=== PATIENT | male | born 1955 | race Caucasian/White ===

== ENCOUNTER 2020-11-23 21:05 | Emergency (ER) | payer BC, SELFPAY ==
[2020-11-23 21:19] VITALS: BP 107/58; PULSE 75; RESP 18; TEMP 36.9; O2SAT 98; BMI 27.1
--- NOTE | 2020-11-23 21:58 | ED.DENTAL ---
HPI - Dental/Oral General Chief complaint: Dental/Oral Stated complaint: broken tooth Time Seen by Provider: 11/23/20 21:54 Source: patient Mode of arrival: ambulatory History of Present Illness HPI Narrative: 65-year-old male with a past medical history of CHF, mi, HLD, HTN, prostate CA, skin CA, [place], presenting to the ED complaining of right lower molar tooth pain times 5 days. Admits broke tooth eating donut, now with worsening pain. Admits has appointment with dentist tomorrow afternoon however pain is too severe. Denies drainage from to, fever, chills, erythema, swelling, difficulty swallowing, ear pain, throat pain MD Complaint: tooth pain and tooth injury Related Data Previous Rx's Medication Instructions Recorded acetaminophen-codeine 1 tab PO Q6H PRN 2 Days #8 tab 11/23/20 Allergies Allergy/AdvReac Type Severity Reaction Status Date / Time No Known Allergies Allergy Unverified 01/30/20 16:39 [No Known Allergies*] Review of Systems Review of Systems: Constitutional: No Fever, No Chills ENT/Mouth: No Ear Pain, No Nasal Congestion, No sore throat, No Swallowing Difficulty, +dental pain, +broken tooth Eyes: No Eye Pain, No Vision Changes Cardiovascular: No Chest Pain, No SOB Respiratory: No Cough, No Dyspnea Gastrointestinal: No Nausea, No Vomiting, No Abdominal pain Skin: No Skin Lesions, No rash Yes all other systems are reviewed and are negative [facility] Past Medical History Attestation statement: The following information was validated with the patient. Medical History (Updated 11/23/20 @ 22:01 by MAINOR Chacon) Cardiac defibrillator in place Congestive heart failure (CHF) Heart attack High cholesterol [place] (hard of hearing) HTN (hypertension) Prostate cancer Skin cancer Surgical History H/O prostatectomy Social History Social History Advance Directives: No Advance Directives Information Provided: Yes Physical Exam Vital Signs: Vital Signs: Last Vital Signs Temp 98.5 F 11/23/20 21:19 Pulse 75 11/23/20 21:19 Resp 18 11/23/20 21:19 BP 107/58 L 11/23/20 21:19 Pulse Ox 98 11/23/20 21:19 Body Mass Index 27.1 Const: General: cooperative and healthy appearing Orientation/consciousness: patient oriented x3 Limitations: no limitations HENMT: Other: Multiple dental caries. Right lower molar broken. No visible pulp. No gingival swelling/erythema. No fluctuance/induration Head: Yes normal to inspection Ears: hearing grossly normal bilaterally General nose exam: Normal external nose present Face and sinus: Yes normal facial exam Mouth: Normal oral and palatal mucosa present Teeth and gingiva: poor dentition Throat: Yes posterior oropharynx normal and Yes uvula midline Eyes: General: appearance normal, both eyes and all related structures EOM: EOMs intact bilaterally Neck: Neck: Yes normal visual inspection and Yes no meningeal signs Resp: Effort & Inspection: normal respiratory effort Cardio: Rate: regular rate Skin: Rashes: no rashes Wounds: no wounds Neuro: General: patient oriented x3 and no meningeal signs Gait exam (Neuro): Normal gait present Extrem: General: Yes normal to inspection MDM - Dental/Oral MDM Narrative Medical decision making narrative: 65-year-old male with a past medical history of CHF, mi, HLD, HTN, prostate CA, skin CA, [place], presenting to the ED complaining of right lower molar tooth pain times 5 days. On exam vital signs stable, NAD, physical exam as above. No evidence of dental abscess/infection. Will give patient pain control and to follow-up with dentist tomorrow, worrisome signs and symptoms and strict return precautions discussed Discharge Plan Discharge Clinical Impression: Toothache, Dental caries Patient Disposition: Home, Self-Care Instructions: Toothache (ED) Additional Instructions: you need to follow-up with the dentist tomorrow as scheduled Tylenol with codeine is an opiate pain medication, take only when pain is severe for the next 2 days if your pain persists or worsens, becomes unbearable, have drainage from the to the have facial swelling, or fever, please return to the ED Prescriptions: New acetaminophen-codeine 300-30 mg tablet 1 tab PO Q6H PRN (Reason: pain, severe) 2 Days Qty: 8 RF: 0 Referrals: Dinorah Power DMD [Dentist] - 2 days
== END 2020-11-23 23:52 | disposition home or self-care (01) ==
PROVIDERS: Emergency Provider Internal Medicine; PCP Hospitalist
DX: K02.9 Dental caries, unspecified (principal); I11.0 Hypertensive heart disease with heart failure; I50.9 Heart failure, unspecified; I25.2 Old myocardial infarction; Z95.810 Presence of automatic (implantable) cardiac defibrillator
CPT/HCPCS: 99283; 99284

== ENCOUNTER → 2023-09-01 08:46 | Day surgery (SDC) | payer BC, SELFPAY ==
[2023-09-01 08:59] VITALS: BMI 25.1
[2023-09-01] MEDS: Lactated Ringers 1,000 ML 80 ML IVCONT (09:06)
--- NOTE | 2023-09-01 09:14 | P.CONAN_ITS ---
HPI - Anesthesia Eval Consult details Narrative: for colon PMFSH Past Medical History Medical History [place] (hard of hearing) Skin cancer Prostate cancer High cholesterol HTN (hypertension) Congestive heart failure (CHF) Heart attack Cardiac defibrillator in place Family History Family history of problems with anesthesia: No Surgical History Surgical History H/O prostatectomy History of Problems with Anesthesia: No Social History Social History Patient Tobacco Use Status: Never used Tobacco Are you DNR?: No Advance Directives: No Advance Directives Information Provided: Yes Nutrition Risks: No Nutritional Risk Meds Allergies Allergy/AdvReac Type Severity Reaction Status Date / Time No Known Allergies Allergy Unverified 01/30/20 16:39 [No Known Allergies*] Active Medications: Current Medications Lactated Ringer's (Lr) 1,000 mls @ 80 mls/hr IVCONT .[id number] BRENDA Last Admin: 09/01/23 09:06 Dose: 80 mls/hr Sodium Biphosphate/Sodium Phosphate (Sodium Phosphate,Bell-Dibasic 133 Ml Enema) 133 ml CO ONCE PRN PRN Reason: Poor Colonoscopy Prep Results Home Medications ?Medication ?Instructions ?Recorded ?Confirmed ?Last Taken ?Type atorvastatin 80 mg tablet 80 mg PO DAILY 09/01/23 09/01/23 Unknown History carvedilol 3.125 mg tablet 3.125 mg PO BID 09/01/23 09/01/23 Unknown History clopidogrel 75 mg tablet 75 mg PO DAILY 09/01/23 09/01/23 Unknown History dapagliflozin propanediol 10 mg 10 mg PO DAILY 09/01/23 09/01/23 Unknown History tablet (Farxiga) digoxin 125 mcg (0.125 mg) tablet 125 mcg PO DAILY 09/01/23 09/01/23 Unknown History furosemide 20 mg tablet mg PO 09/01/23 Unknown History sacubitril 49 mg-valsartan 51 mg 1 tab PO BID 09/01/23 09/01/23 Unknown History tablet (Entresto) spironolactone 25 mg tablet 25 mg PO DAILY 09/01/23 09/01/23 Unknown History Exam Height,Weight and Vital Signs: Height 5 ft 11 in Weight 81.647 kg Airway Mallampati Class: II TM Dist: >3cm Neck ROM: Limited Heart: rrr Lungs: cta Assessment and Plan Assessment Anesthesia Assessment: Anesthesia Plan Discussed Final Anesthetic Review Family History of Problems with Anesthesia: No History of Problems with Anesthesia: No NPO: Yes ASA Class: III Final Preanesthetic Review: No Changes in Pt Med Stat, Meds/Allgs Chart Reviewed, Consent Obtained/Reviewed and Anes Risks/Benef Reviewed Patient Risk: Intermediate Procedure Risk: Low Anesthetic Plan Anesthetic Plan: MAC: Disposition: Standard PACU
[2023-09-01 09:25] VITALS: BP 99/48; PULSE 68; RESP 18; TEMP 36.8; O2SAT 97
[2023-09-01 09:25] LABS: Glucose, Whole Blood 74 mg/dL (60-115)
--- NOTE | 2023-09-01 09:37 | PC.NURSE ---
Dr. Strange updated regarding patient 3 lead EKG and bp results. Cardiology notes reviewed prior by her. Decision made to cancel patient. IV removed and patient left with all belongings. Patient aware to resume medications that were stopped and to f/u for colonoscopy with cardiology workup as required. dr westbrook met with patient prior to departure.
== END ==
PROVIDERS: PCP Internal Medicine; Visit Provider Internal Medicine
DX: Z12.11 Encounter for screening for malignant neoplasm of colon (principal); Z53.8 Procedure and treatment not carried out for other reasons; Z86.010 Personal history of colon polyps; Z79.84 Long term (current) use of oral hypoglycemic drugs
CPT/HCPCS: 82947

== ENCOUNTER → 2023-10-16 07:49 | Outpatient (BNVA) | payer OTHER, SELFPAY | PROVIDERS: PCP Internal Medicine; Visit Provider Registered Nurse | DX: R10.31 Right lower quadrant pain (principal) | CPT/HCPCS: 99202 ==

== ENCOUNTER 2023-11-03 10:53 | Outpatient (AMB) | payer OTHER, SELFPAY ==
--- NOTE | 2023-11-03 11:02 | MHC.OFFVIS ---
Vital Signs 11/03/23 11:09 Height 5 ft 11 in Weight 177 lb BMI 24.7 BP 94/50 L Blood Pressure Location Lt brachial Position Sitting Pulse 56 Intake Visit Reasons: Femoral hernia Intake Note: Patient is seen in office for evaluation and treatment of a femoral hernia. 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 Accompanied by: Spouse Allergies No Known Allergies [No Known Allergies*] Allergy (Unverified 11/03/23 11:08) Medication List - Last Reconciled 11/03/23 by Rhett Sullivan MD [aspirin 81 mg] atorvastatin 80 mg PO DAILY carvedilol 3.125 mg PO BID clopidogrel 75 mg PO DAILY dapagliflozin propanediol (Farxiga) 10 mg PO DAILY digoxin 125 mcg PO DAILY furosemide mg PO sacubitril-valsartan 49-51 mg (Entresto) 1 tab PO BID spironolactone 25 mg PO DAILY HPI Comments Details: 68-year-old male patient presenting with a past history of CHF, VT, cardiac stent, now on antiplatelet therapy, and status post AICD placement, who developed a painful lump in the right groin after pushing his tool box at work. 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 He reports feeling a sharp pain and subsequent lump in the right groin which has persisted for the past several weeks. He denies nausea, vomiting, fever or chills. His bowels have been normal as well. Denies a previous history of hernias or hernia surgery. He has a history of prostate cancer and underwent a robotic prostatectomy. He presents today to discuss possible repair of this inguinal hernia. [facility] Medical History [place] (hard of hearing) Skin cancer Prostate cancer High cholesterol HTN (hypertension) Congestive heart failure (CHF) Heart attack Cardiac defibrillator in place Surgical History H/O prostatectomy Social History Patient Tobacco Use Status: Never used Tobacco Review of Systems Const All systems reviewed & are unremarkable except as noted in HPI and below Denies chills, Denies fever(s), Denies headache(s), Denies poor appetite and Denies weakness ENT Denies headache(s) Card Denies chest pain, Denies irregular heart rhythm, Denies palpitations and Denies dyspnea Resp Denies cough, Denies excessive phlegm production and Denies dyspnea GI Denies abdominal pain, Denies bloating, Denies change in bowel habits, Denies constipation, Denies heartburn, Denies diarrhea, Denies nausea and Denies vomiting Denies difficulty urinating and Denies urinary frequency Musc Denies back pain, Denies muscle weakness and Denies numbness Skin/Breast Denies changing lesions and Denies unusual bruising Neuro Denies headache(s), Denies numbness, Denies paresthesias and Denies weakness Psych Denies anxiety and Denies depression Endo Denies palpitations Lul/Lymph Denies lymphadenopathy Physical Exam Vital Signs: Last Vital Signs Pulse 56 11/03/23 11:09 BP 94/50 L 11/03/23 11:09 BMI result Body Mass Index 24.7 Const General: cooperative and no acute distress Nutritional Appearance: well nourished Orientation/consciousness: patient oriented x3 Limitations: no limitations HEENT Head: Yes normocephalic and Yes atraumatic Ears: hearing grossly normal bilaterally Resp Effort & Inspection: normal respiratory effort, no audible wheezes, no cough and no respiratory distress Cardio Jugular venous distension: no JVD GI Inspection: Yes normal to inspection Palpation (GI): Soft to palpation, nontender, no guarding and Hernia present direct inguinal (Reducible, nontender, increases with Valsalva) on the right Percussion: Yes normal to percussion Auscultation: normal bowel sounds Rectal Exam - Male: Yes deferred Skin Other: Warm, dry, no rash Neuro General: patient oriented x3 Extrem General: Yes no clubbing, cyanosis or edema Assessment & Plan Assessment & Plan (1) Right inguinal hernia: Code(s): K40.90 - Unilateral inguinal hernia, without obstruction or gangrene, not specified as recurrent Category: Medical Plan 68-year-old male patient presenting with a recent onset right inguinal hernia. On examination he does indeed have a reducible right inguinal hernia which increases with Valsalva but does reduce with light pressure. I recommended repair of this right inguinal hernia with mesh and after discussion of the procedure, risks and alternatives, he consents to the surgery. He will be scheduled as a short-stay surgery at his earliest convenience. 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 Coding Level of Care Code New Pt Level 4 (06956) Diagnoses Right inguinal hernia K40.90
[2023-11-03 11:09] VITALS: BP 94/50; PULSE 56; BMI 24.7
== END 2023-11-03 11:37 | disposition home or self-care (01) ==
PROVIDERS: PCP Internal Medicine; Referring Provider Registered Nurse; Visit Provider Surgery
DX: K40.90 Unilateral inguinal hernia, without obstruction or gangrene, not specified as recurrent (principal)
CPT/HCPCS: 99204

== ENCOUNTER → 2023-11-03 10:53 | Outpatient (BNVA) | payer OTHER, SELFPAY | PROVIDERS: PCP Internal Medicine; Referring Provider Registered Nurse; Visit Provider Surgery | DX: K40.90 Unilateral inguinal hernia, without obstruction or gangrene, not specified as recurrent (principal) | CPT/HCPCS: 99202 ==